=== PATIENT | male | born 1950 | race Caucasian/White ===

== ENCOUNTER 2017-02-23 04:48 | Emergency (ER) | payer MEDICARE, MEDICAID ==
[2017-02-23 04:49] VITALS: BMI 29.2
[2017-02-23 05:05] VITALS: TEMP 98.4
[2017-02-23 05:48] LABS: BASO % 1.2 % (0.0-2.0); EOS # 0.2 K/uL (0.0-0.7); EOS % 4.2 % (0.0-4.0); HEMATOCRIT 41.2 % (35.0-51.0); LYMPH # 1.9 K/uL (1.0-4.3); LYMPH % 43.9 % (20.0-40.0); MEAN CELL VOLUME 91.5 fL (80.0-94.0); MEAN CORPUSCULAR HEMOGLOBIN 30.1 pg (27.0-31.0); MEAN CORPUSCULAR HGB CONC 32.8 g/dL (33.0-37.0); MEAN PLATELET VOLUME 10.9 fL (7.2-11.7); MONO # 0.4 K/uL (0.0-0.8); MONO % 8.9 % (0.0-10.0); NRBC % 0.1 % (0.0-2.0); RED CELL DISTRIBUTION WIDTH 14.2 % (11.5-14.5); WHITE BLOOD COUNT 4.2 K/uL (4.8-10.8)
[2017-02-23 05:56] LABS: INR 1.1
--- NOTE | 2017-02-23 06:01 | C.PDOC ---
Time Seen by Provider: 02/23/17 05:02 Chief Complaint (Nursing): Abnormal Skin Integrity Past Medical History Vital Signs: Last Vital Signs Temp 98.4 F 02/23/17 05:00 Pulse 90 02/23/17 05:00 Resp 20 02/23/17 05:00 BP 179/95 H 02/23/17 05:00 Pulse Ox 96 02/23/17 06:01 - Medical History PMH: Diabetes, HTN Surgical History: CABG - [facility] CORONAR ARTERIOGR-2 CATH (02/23/13) LEFT HEART CARDIAC CATH (02/23/13) LT HEART ANGIOCARDIOGRAM (02/23/13) - Social History Hx Tobacco Use: No Hx Alcohol Use: No Hx Substance Use: No - Immunization History Hx Tetanus Toxoid Vaccination: No Hx Influenza Vaccination: No Hx Pneumococcal Vaccination: No ED Course And Treatment - Laboratory Results Result Diagrams: 02/23/17 05:44 O2 Sat by Pulse Oximetry: 96 Disposition - Disposition Instructions: Varicose Veins (ED) Forms: [employer] (Welsh) Print Language: SALVADOREAN
--- NOTE | 2017-02-23 06:01 | C.PDOC ---
History Of Present Illness 66 y/o male brought to ED by ems for bleeding of right leg varicose vein. Patient states he was showering and noticed blood coming from varicose vein on right leg. No other bleeding from anywhere. Patient denies any injury to area, fever, change in sensation or any other complaints at this time. Time Seen by Provider: 02/23/17 05:02 Chief Complaint (Nursing): Abnormal Skin Integrity History Per: Patient History/Exam Limitations: no limitations Onset/Duration Of Symptoms: Hrs Current Symptoms Are (Timing): Still Present Location Of Injury: Right: Face Past Medical History Reviewed: Historical Data, Nursing Documentation, Vital Signs Vital Signs: Last Vital Signs Temp 98.4 F 02/23/17 05:00 Pulse 80 02/23/17 06:22 Resp 14 02/23/17 06:22 BP 160/90 H 02/23/17 06:22 Pulse Ox 99 02/23/17 06:22 - Medical History PMH: Diabetes, HTN Surgical History: CABG - [facility] Procedures CORONAR ARTERIOGR-2 CATH (02/23/13) LEFT HEART CARDIAC CATH (02/23/13) LT HEART ANGIOCARDIOGRAM (02/23/13) Family History: States: No Known Family Hx - Social History Hx Tobacco Use: No Hx Alcohol Use: No Hx Substance Use: No - Immunization History Hx Tetanus Toxoid Vaccination: No Hx Influenza Vaccination: No Hx Pneumococcal Vaccination: No Review Of Systems Except As Marked, All Systems Reviewed And Found Negative. Constitutional: Negative for: Fever, Chills Gastrointestinal: Negative for: Nausea, Vomiting Musculoskeletal: Positive for: Leg Pain, Foot Pain Skin: Negative for: Rash Neurological: Negative for: Weakness, Numbness Physical Exam - Physical Exam Appears: Well, Non-toxic, No Acute Distress Skin: Warm, Dry, No Rash Head: Atraumatic, Normacephalic Eye(s): bilateral: Normal Inspection, EOMI Nose: Normal Oral Mucosa: Moist Neck: Normal ROM, Supple Chest: Symmetrical Cardiovascular: Rhythm Regular Respiratory: Normal Breath Sounds, No Accessory Muscle Use, No Rales, No Rhonchi Extremity: Normal ROM, No Tenderness, Capillary Refill (<2 seconds), No Swelling , Other ((+) varicose veins bilater to lower extremities. No active bleeding from right medial aspect of right leg from varicose vein) Extremity: Bilateral: Atraumatic, Normal Color And Temperature, Normal ROM Pulses: Left Dorsalis Pedis: Normal, Right Dorsalis Pedis: Normal Neurological/Psych: Oriented x3, Normal Speech, Normal Motor, Normal Sensation ED Course And Treatment - Laboratory Results Result Diagrams: 02/23/17 05:44 O2 Sat by Pulse Oximetry: 96 (RA) Pulse Ox Interpretation: Normal Disposition - Disposition Disposition: HOME/ ROUTINE Disposition Time: 06:00 Condition: STABLE Instructions: Varicose Veins (ED) Forms: [employer] (Macedonian) Print Language: AZERI - Clinical Impression Clinical Impression: Bleeding from varicose vein - PA / SECURITY LEAD / Resident Statement MD/DO has reviewed & agrees with the documentation as recorded. - Scribe Statement The provider has reviewed the documentation as recorded by the Sherrill Shah All medical record entries made by the Emmaibaudrey were at my direction and personally dictated by me. I have reviewed the chart and agree that the record accurately reflects my personal performance of the history, physical exam, medical decision making, and the department course for this patient. I have also personally directed, reviewed, and agree with the discharge instructions and disposition.
[2017-02-23 06:23] VITALS: BP 160/90; PULSE 80; RESP 14
[2017-02-23 06:33] VITALS: O2SAT 96
== END 2017-02-23 06:23 | disposition home or self-care (01) ==
LOC: C.ER 04:48
DX: I83.891 Varicose veins of right lower extremity with other complications (principal)